=== PATIENT | female | born 1985 | race Caucasian/White ===

== ENCOUNTER 2022-07-29 07:56 | Outpatient (CLI) | payer OTHER, SELFPAY ==
[2022-07-29 14:42] LABS: Albumin* 4.4 g/dL (3.3-5.0)
[2022-07-29 14:43] LABS: Chloride* 106 mmol/L (96-114); Potassium* 4.7 mmol/L (3.6-5.1); Sodium* 141 mmol/L (135-149)
[2022-07-29 14:45] LABS: Bilirubin Total* 0.4 mg/dL (0.1-1.5); Carbon Dioxide* 31 mmol/L (20-32); Cholesterol* 186 mg/dL (90-199); Creatinine* 0.6 mg/dL (0.5-1.5); Estimated Glomerular Filt Rate 117 ml/min
[2022-07-29 14:46] LABS: Alanine Aminotransferase* 19 U/L (4-35); Alkaline Phosphatase* 50 U/L (40-150); Aspartate Amino Transferase* 19 U/L (12-35); Blood Urea Nitrogen* 15 mg/dL (5-24); Calcium* 9.3 mg/dL (8.4-10.6); Glucose* 100 mg/dL (60-115); Total Protein* 7.2 g/dL (6.0-8.3); Triglycerides* 68 mg/dL (40-149)
[2022-07-29 14:47] LABS: HDL Cholesterol* 38 mg/dL (>=50); LDL Cholesterol Calculated 134 mg/dL (<100)
== END 2022-07-29 07:57 | disposition home or self-care (01) ==
PROVIDERS: PCP Family Medicine; Visit Provider Physician Assistant Medical
DX: E66.9 Obesity, unspecified (principal); I10 Essential (primary) hypertension; E78.5 Hyperlipidemia, unspecified
CPT/HCPCS: 80053; 80061; 84443

== ENCOUNTER 2022-10-13 15:01 | Outpatient (CLI) | payer BC, SELFPAY ==
[2022-10-13 13:47] LABS: Alanine Aminotransferase* 15 U/L (4-35); Aspartate Amino Transferase* 19 U/L (12-35); Cholesterol* 178 mg/dL (90-199); HDL Cholesterol* 38 mg/dL (>=50); LDL Cholesterol Calculated 121 mg/dL (<100); Triglycerides* 96 mg/dL (40-149)
== END 2022-10-13 15:02 | disposition home or self-care (01) ==
PROVIDERS: PCP Family Medicine; Visit Provider Physician Assistant Medical
DX: E78.2 Mixed hyperlipidemia (principal)
CPT/HCPCS: 80061; 84450; 84460

== ENCOUNTER 2024-02-16 08:05 | Outpatient (CLI) | payer BC, SELFPAY | END 2024-02-16 08:06 | disposition home or self-care (01) | LOC: NFLDREF 02-24 11:06 | PROVIDERS: PCP Physician Assistant Medical; Referring Provider Physician Assistant Medical; Visit Provider Physician Assistant Medical | DX: I10 Essential (primary) hypertension (principal); E78.2 Mixed hyperlipidemia; E66.9 Obesity, unspecified; Z13.29 Encounter for screening for other suspected endocrine disorder | CPT/HCPCS: 80053; 80061; 84443 ==

== ENCOUNTER 2024-03-29 08:45 | Emergency (ER) | payer BC, SELFPAY ==
[2024-03-29 09:00] VITALS: BP 166/108; PULSE 61; RESP 18; TEMP 36.1; O2SAT 100; BMI 29.4
--- NOTE | 2024-03-29 09:13 | CRLHL7_ITS ---
For Patients: As a result of the Century Cures Act, medical imaging exams and procedure reports are released immediately into your electronic medical record. You may view this report before your referring provider. If you have questions, please contact your health care provider. INDICATION: Left facial swelling. Multiple episodes of strep this month. TECHNIQUE: CT of the neck with 92 ml Isovue 370 contrast agent. Coronal and sagittal reconstructions are included. COMPARISON: None available FINDINGS: No suspicious findings identified within the soft tissues of the included left face. No soft tissue mass, abnormal fluid collection, evidence of focal inflammation, or suspicious enhancement identified in the neck. Multiple scattered mildly prominent lymph nodes are noted throughout sandhya stations 2 through 5 bilaterally. These do not appear pathologically enlarged by CT size criteria. The oral cavity, pharyngeal mucosal spaces, and laryngeal structures are unremarkable. The visualized airway is grossly patent. The major salivary glands and thyroid gland are unremarkable. Major vascular structures of the neck demonstrate expected contrast opacification. Visualized paranasal sinuses and mastoid air cells are clear. Included orbits and intracranial structures are unremarkable for technique. Slight reversal of the normal cervical lordosis with mild spondylosis contributing to mild spinal canal narrowing at C6-7. No suspicious lytic or blastic osseous lesion. Incidental calcified granuloma at the right lung apex. No focal mass or consolidation in the included lungs. IMPRESSION: 1. No soft tissue mass, abnormal fluid collection, or acute inflammation identified at the included left face or elsewhere within the neck. 2. Scattered mildly prominent cervical lymph nodes, not pathologically enlarged by CT size criteria, and presumably physiologic or reactive. Please note that all CT scans at this facility use dose modulation, iterative reconstruction, and/or weight-based dosing when appropriate to reduce radiation dose to as low as reasonably achievable. Dictated by Josette Del Real MD @ 03/29/2024 10:55:19 AM (Electronically Signed)
--- NOTE | 2024-03-29 09:16 | ED.GENADULT ---
HPI - General Adult General Chief complaint: Ear/Nose/Throat Problem Stated complaint: Sore throat, facial swelling, feeling unwell Time Seen by Provider: 03/29/24 08:48 Source: patient Mode of arrival: ambulatory Limitations: no limitations History of Present Illness HPI narrative: Patient is a 38-year-old female presenting for source throat and left-sided facial swelling. She states she was sent here by the clinic for possible CT scan. She previously was diagnosed strep throat back on 03/02/2024. Symptoms were not resolving with antibiotics and was given antibiotic injection. She then was feeling better up until about 3 or 4 days ago. She started having a sore throat again. She was also having swelling of the left side of her face. She was sent here for concern of possible abscess versus soft tissue infection. She is having still some pain with swallowing but denies difficulty breathing or shortness of breath. States she has had strep throat multiple times over the past year. Her primary care provider has spoken to her today about possibly seeing ENT. She still has her tonsils. Is not aware of any sick contacts. Denies fevers, chills, chest pain, weakness, numbness, headache, vision changes. Related Data Home Medications ?Medication ?Instructions ?Recorded ?Confirmed levonorgestrel 21 mcg/24 hr (up to 1 device intrauterine ONCE 03/25/22 03/29/24 8 years) 52 mg intrauterine device (Mirena) bupropion HCl 100 mg tablet,12 hr 100 mg PO QDAY 08/06/23 03/29/24 sustained-release sertraline 100 mg tablet 100 mg PO DAILY 08/06/23 03/29/24 Previous Rx's ?Medication ?Instructions ?Recorded atorvastatin 20 mg tablet 20 mg PO QDAY #90 tabs 02/17/24 lisinopril 20 mg tablet 20 mg PO QDAY #90 tabs 02/17/24 fluconazole 100 mg tablet 100 mg PO .qod #2 tabs 03/08/24 (Diflucan) amoxicillin 875 mg-potassium 1 tab PO BID 7 days #14 tabs 03/29/24 clavulanate 125 mg tablet Allergies Allergy/AdvReac Type Severity Reaction Status Date / Time Sulfa Antibiotics Allergy Intermediate Rash, Uncoded 03/29/24 07:22 fever, MATSON Review of Systems Status of ROS: Reports: 10 or more systems reviewed and unremarkable except as noted in History and below PFSH PFSH Medical History Yeast dermatitis ?B37.2 - Candidiasis of skin and nail (ICD-10) Strep pharyngitis ?J02.0 - Streptococcal pharyngitis (ICD-10) Fatigue ?R53.83 - Other fatigue (ICD-10) Pharyngitis ?J02.9 - Acute pharyngitis, unspecified (ICD-10) Unsuccessful attempt to remove intrauterine device (IUD) ?Z53.8 - Procedure and treatment not carried out for other reasons (ICD-10) ?Z97.5 - Presence of (intrauterine) contraceptive device (ICD-10) History of gestational hypertension (2007) ?Z87.59 - Personal history of other complications of , childbirth and the puerperium (ICD-10) History of gestational diabetes mellitus (GDM) (2007) ?Z86.32 - Personal history of gestational diabetes (ICD-10) Gestational diabetes mellitus (GDM) (05/21/11) ?O24.419 - Gestational diabetes mellitus in , unspecified control (ICD-10) Failed trial of labor with baby delivered ?O66.40 - Failed trial of labor, unspecified (ICD-10) Surgical History History of cone biopsy of cervix (2015) ?Z98.890 - Other specified postprocedural states (ICD-10) History of colposcopy ?Z98.890 - Other specified postprocedural states (ICD-10) History of section (05/21/11) ?Z98.891 - History of uterine scar from previous surgery (ICD-10) Family History Father Stroke Diabetes Heart disease High blood pressure High cholesterol Paternal Grandmother Diabetes Heart disease Maternal Grandmother Heart disease Maternal Grandfather Heart disease Paternal Grandmother Heart disease Diabetes Family/Other Osteoporosis Social History Narrative: Smoker- 1/2 ppd x 15 years Does not use illicit drugs Rarely consumes alcohol Smoking Status: Current every day smoker Do you use any of these nicotine containing products: None Second hand tobacco smoke exposure: No How often do you have a drink containing alcohol: never How often do you have six or more drinks on one occasion: Never AUDIT-C Alcohol total score: 0 Non-prescribed substance use: denies use Little interest or pleasure in doing things: not at all Feeling down, depressed, or hopeless: not at all service: No Exam Narrative: Exam Narrative: Const: Well-nourished, Well-developed, in no distress Eyes: PERRL, no conjunctival injection, and symmetrical lids HENT: Atraumatic external nose and ears. Moist mucous membranes. Mild swelling noted left side of her face, uvula midline, no some erythema in the back with throat but no tonsillar exudates or swelling. Neck: Symmetric, trachea midline, No thyromegaly. CVS: RRR, No murmurs or gallops. Peripheral pulses 2+ and equal in all extremities RESP: Unlabored respiratory effort. Clear to auscultation bilaterally. GI: Nontender/Nondistended, No rebound or guarding. MSK:Extremities w/o deformity, Normal Active ROM Skin: Warm, Dry. No rashes or lesions. Neuro: Normal Muscle tone, No focal neurological deficits. Psych: Awake, Alert, & Oriented x3. Appropriate mood and affect. Const: Vital Signs, click to edit/add: Vital Signs - 24 hr 03/29/24 09:00 Temperature 96.9 F L Pulse Rate [Left P ulse Oximeter] 61 Respiratory Rate 18 Blood Pressure [Le ft Upper Arm] 166/108 H Pulse Oximetry 100 Oxygen Delivery Me thod Room Air Course Vital Signs Vital signs: Initial Vital Signs Temperature 96.9 F L 03/29/24 09:00 Temperature Source Temporal Artery Scan 03/29/24 09:00 Pulse Rate 61 03/29/24 09:00 Pulse Rhythm Regular 03/29/24 09:00 Pulse Strength 3+ Normal 03/29/24 09:00 Respiratory Rate 18 03/29/24 09:00 Blood Pressure 166/108 H 03/29/24 09:00 Blood Pressure Mean 127 H 03/29/24 09:00 Blood Pressure Position Sitting 03/29/24 09:00 Pulse Oximetry 100 03/29/24 09:00 Oxygen Delivery Method Room Air 03/29/24 09:00 Vital Signs Temperature 96.9 F L 03/29/24 09:00 Pulse Rate 61 03/29/24 09:00 Respiratory Rate 18 03/29/24 09:00 Blood Pressure 166/108 H 03/29/24 09:00 Pulse Oximetry 100 03/29/24 09:00 Oxygen Delivery Method Room Air 03/29/24 09:00 Temperature 96.9 F L 03/29/24 09:00 Pulse Rate 61 03/29/24 09:00 Respiratory Rate 18 03/29/24 09:00 Blood Pressure 166/108 H 03/29/24 09:00 Pulse Oximetry 100 03/29/24 09:00 Oxygen Delivery Method Room Air 03/29/24 09:00 Medical Decision Making MDM Narrative Medical decision making narrative: Patient is a 38-year-old female presenting for left facial swelling and sore throat. We will test her for COVID/flu/RSV and retested for strep. With this facial swelling she could of parotiditis or other soft tissue infection. No signs of Moody angina at this time. I do not see any obvious signs of abscess in the back of her throat. Her voice is normal. I will do a CT scan to look for any concerning abnormalities. She is agreeable to this plan. test will be done. Imaging returned showing no concerning abnormalities. There are some swollen cervical lymph nodes but nothing that will require treatment at this time. She will be discharged with outpatient follow-up. She is agreeable to this plan. Lab Data Labs: Lab Results 03/29/24 03/29/24 Range/Units 09:00 09:31 HCG, Qual Negative (Negative) SARS-CoV-2 (PCR) Negative SARS-CoV-2 (Negative) Influenza Type A (PCR) Negative PCR FLU A (Negative) Influenza Type B (PCR) Negative PCR FLU B (Negative) RSV (PCR) Negative PCR RSV (Negative) Group A Strep DNA NOT DETECTED (Not Detectd) Imaging Data CT scan neck soft tissue: Attestation: I have reviewed the pertinent imaging results. Radiologist's impression: 1. No soft tissue mass, abnormal fluid collection, or acute inflammation identified at the included left face or elsewhere within the neck. 2. Scattered mildly prominent cervical lymph nodes, not pathologically enlarged by CT size criteria, and presumably physiologic or reactive. Please note that all CT scans at this facility use dose modulation, iterative reconstruction, and/or weight-based dosing when appropriate to reduce radiation dose to as low as reasonably achievable. Dictated by Josette Del Real MD @ 03/29/2024 10:55:19 AM Discharge Plan Discharge Clinical Impression: Pharyngitis Qualifiers: Pharyngitis/tonsillitis etiology: unspecified etiology Qualified Code(s): J02.9 - Acute pharyngitis, unspecified Patient Disposition: Home, Self-Care Condition: Stable Instructions: Pharyngitis (ED) Additional Instructions: Take Tylenol and ibuprofen for pain. If it is becoming difficult to breathe or your notice voice change return to the emergency department for re-evaluation. Also return for any other new or concerning symptoms. Follow-up with the primary care provider if the symptoms are persisting into next week Prescriptions: No Action bupropion HCl 100 mg tablet sustained-release 12 hr 100 mg PO QDAY fluconazole [Diflucan] 100 mg tablet 100 mg PO .qod Qty: 2 1RF amoxicillin-pot clavulanate 875-125 mg tablet 1 tab PO BID 7 Days Qty: 14 0RF sertraline 100 mg tablet 100 mg PO DAILY Mirena 20 mcg/24 hours (7 yrs) 52 mg intrauterine device 1 device intrauterine ONCE Rx Instructions: as a single dose atorvastatin 20 mg tablet 20 mg PO QDAY Qty: 90 1RF lisinopril 20 mg tablet 20 mg PO QDAY Qty: 90 1RF Follow Up/Referrals: Prabhjot Love PA-C [Primary Care Provider] - Stand Alone Forms: [employer] Info Instructions
[2024-03-29 09:40] LABS: Strep A DNA Probe* NOT DETECTED (Not Detectd)
[2024-03-29 09:52] LABS: PCR FLU A Negative PCR FLU A (Negative); PCR FLU B Negative PCR FLU B (Negative); PCR RSV Negative PCR RSV (Negative); SARS PCR* Negative SARS-CoV-2 (Negative)
[2024-03-29 09:55] LABS: HCG Qualitative Serum* Negative (Negative)
== END 2024-03-29 11:25 | disposition home or self-care (01) ==
PROVIDERS: Emergency Provider Student in an Organized Health Care Education/Training Program; PCP Physician Assistant Medical
DX: J02.9 Acute pharyngitis, unspecified (principal)
CPT/HCPCS: 36415; 70491; 84703; 86140; 87070; 87631; 87651; 99282; 99283; Q9967

== ENCOUNTER 2025-03-15 14:44 | Outpatient (CLI) | payer BC, SELFPAY ==
--- NOTE | 2025-03-15 15:00 | CRLHL7_ITS ---
For Patients: As a result of the Century Cures Act, medical imaging exams and procedure reports are released immediately into your electronic medical record. You may view this report before your referring provider. If you have questions, please contact your health care provider. INDICATION: BILATERAL SCREENING MAMMOGRAM, ASYMPTOMATIC 39 Y/O FEMALE COMPARISON: Baseline TECHNIQUE: Digital mammogram in CC and MLO projections including computer-aided detection (CAD) and tomosynthesis. BREAST COMPOSITION: There are scattered areas of fibroglandular density. FINDINGS: No suspicious findings. ASSESSMENT: BI-RADS 1 Negative RECOMMENDATION: Annual screening mammogram. A lay language report of this examination will be provided to the patient. Dictated by: Lane Martinez MD @ 03/16/2025 09:09:28 (Electronically Signed)
== END 2025-03-15 14:45 | disposition home or self-care (01) ==
LOC: MAMMO 14:45
PROVIDERS: PCP Physician Assistant Medical; Visit Provider Physician Assistant Medical
DX: Z12.31 Encounter for screening mammogram for malignant neoplasm of breast (principal)
CPT/HCPCS: 77063; 77067